=== PATIENT | female | born 1990 | race Caucasian/White ===

== ENCOUNTER 2017-10-25 20:56 | Emergency (ER) | payer OTHER ==
[2017-10-25 21:16] VITALS: BP 118/80
[2017-10-25] MEDS ORDERED: DIPH,PERTUSS(ACELL),TET VAC/PF 0.5 ML DISP.SYRIN IM ONE (21:20)
--- NOTE | 2017-10-25 21:30 | ED Physician Documentation ---
General Adult - HISTORIAN Historian: patient - HPI Stated Complaint: laceration Chief Complaint: Hand Injury Additional Information: 1cm lac lt thumb occ on med cart at [facility] [id number] hrs bled significantly pt had used steri strips cleansed w/betadine approx w/dermabond at pt request. she was also given tet toxoid. she is to keep dry and clean- wear bandaid-and rubber glove when working. may wash thumb after 5 days. hemostasis accomplished before applying dermabond Onset: hours ([id number]) Timing: still present Severity: mild - ROS CONST: no problems EYES/ENT: none CVS/RESP: none GI/: none MS/SKIN/LYMPH: none NEURO/PSYCH: denies: headache, fainting, dizziness - PAST HX Past History: other (anxiety depression) Surgeries/Procedures: other (acl reconstruction) Immunizations: denies: UTD Allergies/Adverse Reactions: Allergies Allergy/AdvReac Type Severity Reaction Status Date / Time No Known Allergies Allergy Verified 10/26/15 05:39 - SOCIAL HX Smoking History: cigarettes ([id number] tapering to stop) Alcohol Use: none Drug Use: none - FAMILY HX Family History: No - VITAL SIGNS Vital Signs: Vital Signs Temp Pulse Resp BP Pulse Ox 97.8 F 74 14 118/80 100 10/25/17 20:56 10/25/17 20:56 10/25/17 20:56 10/25/17 20:56 10/25/17 20:56 - REVIEWED ASSESSMENTS Nursing Assessment Reviewed: Yes Vitals Reviewed: Yes Procedures Wound Location: upper extremity Wound's Depth, Shape: superficial, linear Wound Explored: clean Wound Repaired With: Dermabond (.pt request--used betadine for cleansing decomtamination) ED Results Lab/Radiology - Orders Orders: ED Orders Category Date Time Status Skin Adhesive NOW Care 10/25/17 21:30 Ordered Diph,Pertuss(Acell),Tet Vac/Pf [Adacel] Med 10/25/17 21:20 Discontinued 0.5 ml IM .ONCE ONE General Adult Physical Exam - PHYSICAL EXAM GENERAL APPEARANCE: mild distress EENT: eye inspection normal NECK: normal inspection RESPIRATORY: no resp distress, chest non-tender, breath sounds normal CVS: reg rate & rhythm, heart sounds normal ABDOMEN: soft, non-tender SKIN: warm/dry, normal color. No: cyanosis, diaphoresis, jaundice EXTREMITIES: non-tender, normal range of motion NEURO: oriented X3, motor nml, sensation nml, mood/affect nml Discharge Clincal Impression: laceration lt thumb Referrals: Dandre Rangel MD [Primary Care Provider] - 2 Days Comments: tet tox adm. Condition: Good Disposition: 01 HOME, SELF-CARE Decision to Admit: NO Decision Time: 21:37
== END 2017-10-25 21:32 | disposition home or self-care (01) ==
LOC: ED 20:56
DX: S61.012A Laceration without foreign body of left thumb without damage to nail, initial encounter (principal); Z23 Encounter for immunization; X58.XXXA Exposure to other specified factors, initial encounter; Y92.9 Unspecified place or not applicable; Y93.9 Activity, unspecified
CPT/HCPCS: 12001; 90471; 90715; 99283